=== PATIENT | female | born 1950 | race Caucasian/White ===

== ENCOUNTER 2017-07-12 07:24 | Day surgery (SDC) | payer MEDICARE ==
[~2017-07-12] VITALS: Ht 167.6 cm; Wt 72.7 kg
[~2017-07-12 07:24] MED LIST: AMAN100T PO; AMBI5TAB PO; CYAN100025 SL; ENAL20TA PO; ESTR.3 PO; SINE25TA PO; VITA1000 PO
[2017-07-12] MEDS ORDERED: NYST15T TOPICAL (07:45)
[2017-07-12 07:47] VITALS: BP 139/84; PULSE 81; RESP 20; TEMP 97.6; O2SAT 98
[2017-07-12] MEDS ORDERED: SODIUM CHLOR 0.9% 1000 ML INJ 1,000 ML IV SCH (08:00)
[2017-07-12 08:20] LABS: AUTOMATED NEUTROPHIL # 3.7 TH/MM3 (1.8-7.7); BASOPHIL % 0.3 % (0.0-2.0); EOSINOPHIL # 0.1 TH/MM3 (0-0.4); EOSINOPHIL % 2.4 % (0.0-4.0); HEMOGLOBIN 14.6 GM/DL (11.6-15.3); LYMPH % 30.4 % (9.0-44.0); LYMPHOCYTE # 1.9 TH/MM3 (1.0-4.8); MEAN CELL VOLUME 95.1 FL (80.0-100.0); MEAN CORPUSCULAR HEMOGLOBIN 32.2 PG (27.0-34.0); MEAN CORPUSCULAR HGB CONC 33.9 % (32.0-36.0); MEAN PLATELET VOLUME 7.7 FL (7.0-11.0); MONO % 7.8 % (0.0-8.0); MONOCYTE # 0.5 TH/MM3 (0-0.9); NEUT % 59.1 % (16.0-70.0); PLATELET COUNT 328 TH/MM3 (150-450); RED BLOOD COUNT 4.52 MIL/MM3 (4.00-5.30); RED CELL DISTRIBUTION WIDTH 12.9 % (11.6-17.2); WHITE BLOOD COUNT 6.3 TH/MM3 (4.0-11.0)
[2017-07-12 08:40] LABS: BICARBONATE 29.7 MEQ/L (21.0-32.0); CREATININE 0.9 MG/DL (0.50-1.00)
--- NOTE | 2017-07-12 09:11 | PD.RAD ---
Post Procedure Progress Note Pre Procedure Diagnosis: (1) Parkinson disease (2) Gait abnormality Post Procedure Diagnosis: (1) Parkinson disease (2) Gait abnormality Procedure Date: Jul 12, 2017 Supervising Radiologist: Ajay Phelps Estimated blood loss: none Anesthesia: Local Plan of Activity Patient to Unit: [facility] Patient Condition: Good Additional Comments: LP completed. Single puncture at L4. 20 cc of clear csf removed and sent to pathology. See PACS Report for procedural detail/treatment Ajay Phelps MD Jul 12, 2017 09:11
[2017-07-12 09:15] VITALS: BP 138/86; PULSE 75; RESP 18; TEMP 97.9; O2SAT 99
--- NOTE | 2017-07-12 09:42 | RADRPT ---
EXAM DATE/TIME: 07/12/2017 08:19 [facility] COMPARISON: No previous studies available for comparison. INDICATIONS : Patient presents with history of Parkinson's disease with developed weakness. MEDICAL HISTORY : Parkinson's Disease Hypertension Hyperlipidemia Uterine Cancer SURGICAL HISTORY : Tonsillectomy Hysterectomy Lumpectomy ENCOUNTER: Initial ACUITY: > 1 year PAIN SCORE: 0/10 LUMBAR PUNCTURE TIME: 0900 hours FLUORO TIME: 0.6 minutes IMAGE SERIES: 1 ACCESS LEVEL: L4-5 FLUID: 19 cc of clear CSF was collected and sent to the laboratory for analysis. PROCEDURE : 1. Fluoroscopic guided lumbar puncture. The risks, benefits and alternatives to the procedure were explained and verbal and written consent w as obtained. The site was prepped in sterile fashion. Full sterile technique was used, including ca p, mask, sterile gloves and gown and a large sterile sheet. Hand hygiene and 2% chlorhexidine and/or betadine/alcohol prep was utilized per protocol for cutaneous antisepsis. The skin and subcutaneous tissues were infiltrated with local anesthetic solution. With fluoroscopic guidance the lumbar thecal sac was punctured at the level above. The fluid describ ed above was removed without difficulty. The patient tolerated the procedure well and there were no complications. CONCLUSION: Uncomplicated fluoroscopically guided lumbar puncture. Ajay Phelps MD on July 12, 2017 at 9:39 Board Certified Radiologist. This report was verified electronically.
[2017-07-12 09:52] LABS: TOTAL PROTEIN,CSF 45.3 MG/DL (15.0-45.0)
[2017-07-12 10:44] LABS: VOLUME TUBE # 1 4.6 ML
[2017-07-12 10:46] LABS: CSF LYMPHOCYTES 0 %; CSF NEUTROPHILS 0 %
[2017-07-12 10:47] LABS: RBC TUBE #1 48 /MM3; WBC TUBE #1 0 /MM3 (0-10)
[2017-07-12 10:50] LABS: RBC TUBE #4 18 /MM3; SUPERNATE COLOR TUBE #1 CLEAR (CLEAR); WBC TUBE #4 3 /MM3 (0-10)
[2017-07-12 10:51] LABS: CSF LYMPHOCYTES 0 %
[2017-07-13 06:47] LABS: CSF NEUTROPHILS 100 %
[2017-07-14 12:22] LABS: ALBUMIN CSF 22.9 mg/dL (<=27.0); ALBUMIN SERUM 4060 mg/dL (3200 - 4800); IGG CSF 2.3 mg/dL (<=8.1); IGG INDEX CSF 0.45 (<=0.85); IGG SERUM 909 mg/dL (767 - 1590); IGG/ALBUMIN SERUM 0.22 (<=0.40); OLIGOCLONAL BANDING CSF 0 bands; OLIGOCLONAL BANDING INTERPRET 0 bands (<4); OLIGOCLONAL BANDING SERUM 0 bands
== END 2017-07-12 12:00 | disposition home or self-care (01) ==
LOC: HROP 07:24 → HRIP 07:31 → HROP 12:00
PROVIDERS: ATTEND Specialist
DX: G20 Parkinson's disease (principal); R53.1 Weakness; I10 Essential (primary) hypertension; E78.5 Hyperlipidemia, unspecified; R26.9 Unspecified abnormalities of gait and mobility; M47.12 Other spondylosis with myelopathy, cervical region; M47.815 Spondylosis without myelopathy or radiculopathy, thoracolumbar region; Z85.42 Personal history of malignant neoplasm of other parts of uterus
CPT/HCPCS: 62270; 77003; 80048; 82040; 82042; 82784; 82945; 83873; 83916; 84157; 85025; 85610; 85730; 87070; 87102; 87205; 87206; 89051; J7030